=== PATIENT | female | born 1995 | race Caucasian/White ===

== ENCOUNTER 2025-06-05 09:16 | Outpatient (CLI) | payer OTHER | END 2025-06-05 09:17 | disposition home or self-care (01) | LOC: CSHULT 09:16 | PROVIDERS: ATTEND Nurse Practitioner Family | DX: R74.8 Abnormal levels of other serum enzymes (principal); K76.0 Fatty (change of) liver, not elsewhere classified; K80.20 Calculus of gallbladder without cholecystitis without obstruction | CPT/HCPCS: 76705 ==